=== PATIENT | male | born 1995 | race Two or more races ===

== ENCOUNTER 2023-11-14 03:59 | Emergency (ER) | payer SELFPAY ==
[~2023-11-14] VITALS: Ht 180.3 cm; Wt 81.8 kg
[2023-11-14 03:59] VITALS: BP 130/86; PULSE 104; RESP 18; TEMP 98.7
[2023-11-14] MEDS: ACETAMINOPHEN 500 MG TABLET PO ONE (04:15)
== END 2023-11-14 04:30 | disposition home or self-care (01) ==
LOC: EMS 04:01
DX: R51.9 Headache, unspecified (principal)
CPT/HCPCS: 99283